=== PATIENT | female | born 1985 | race Caucasian/White ===

== ENCOUNTER 2018-11-22 21:26 | Emergency (ER) | payer MEDICAID ==
[~2018-11-22] VITALS: Ht 162.6 cm; Wt 69.0 kg
[~2018-11-22 21:26] MED LIST: TRAM50TA2 PO
[2018-11-22 22:49] LABS: BASOPHILS # (AUTO) 0.1 X10'3 (0-0.2); BASOPHILS % (AUTO) 0.6 % (0-1); EOSINOPHILS # (AUTO) 0.8 X10'3 (0-0.9); HEMATOCRIT 39.9 % (35.0-45.0); HEMOGLOBIN 12.9 g/dl (12.0-16.0); LYMPHOCYTES # (AUTO) 2.6 X10'3 (1.1-4.8); LYMPHOCYTES % (AUTO) 31.9 % (21-51); MEAN CORPUSCULAR HEMOGLOBIN 25.9 PG (27.0-31.0); MEAN CORPUSCULAR HGB CONC 32.3 % (33.0-36.5); MEAN PLATELET VOLUME 8.5 FL (7.4-10.4); MONOCYTES # (AUTO) 0.7 X10'3 (0-0.9); MONOCYTES % (AUTO) 8.9 % (2-12); NEUTROPHILS % (AUTO) 48.6 % (42-75); PLATELET COUNT 348 X10'3 (140-440); RED BLOOD COUNT 4.99 X10'6 (4.20-5.60); RED CELL DISTRIBUTION WIDTH 17.4 % (11.5-14.5); WHITE BLOOD COUNT 8.2 X10'3 (4.5-11.0)
[2018-11-22 22:55] LABS: ALANINE AMINOTRANSFERASE 23 U/L (12-78); ALBUMIN 3.6 G/DL (3.4-5.0); ALBUMIN/GLOBULIN RATIO 0.9 (1.1-1.5); ALKALINE PHOSPHATASE 89 IU/L (46-116); ANION GAP 8 (8-16); ASPARTATE AMINO TRANSFERASE 18 U/L (10-37); BILIRUBIN,TOTAL 0.4 MG/DL (0.1-1.0); BLOOD UREA NITROGEN 4 MG/DL (7-18); BUN/CREATININE RATIO 4.3 (6.6-38.0); CALCIUM 8.9 MG/DL (8.5-10.1); CHLORIDE 101 MMOL/L (99-107); CREATININE 0.92 MG/DL (0.40-0.90); GLUCOSE 84 MG/DL (70-104); POTASSIUM 3.6 MMOL/L (3.5-5.1); SODIUM 139 MMOL/L (135-145); TOTAL CARBON DIOXIDE 30.3 MMOL/L (24-32); TOTAL PROTEIN 7.6 G/DL (6.4-8.2); eGFR 70 ML/MIN
[2018-11-22 23:03] LABS: ETHANOL < 0.010 GM/DL (0.0-0.010)
[2018-11-23] MEDS ORDERED: LORazepam 1 MG tablet PO PRN (01:50)
[2018-11-23] MEDS ORDERED: sertraline 50mg tablet PO ONE (01:50)
[2018-11-23 03:20] LABS: URINE HCG NEGATIVE (NEG)
[2018-11-23 03:32] LABS: URINE AMPHETAMINE SCREEN NEGATIVE (Neg); URINE BARBITUATE SCREEN NEGATIVE (Neg); URINE BENZODIAZEPINES SCREEN NEGATIVE (Neg); URINE CANNABINOID SCREEN POSITIVE (Neg); URINE COCAINE SCREEN NEGATIVE (Neg); URINE METHADONE SCREEN NEGATIVE (Neg); URINE OPIATE SCREEN NEGATIVE (Neg); URINE PHENCYCLIDINE SCREEN NEGATIVE (Neg)
[2018-11-23 04:04] LABS: CLARITY,URINE CLEAR (Clear); COLOR,URINE YELLOW (Yellow); GLUCOSE, URINE NEGATIVE (Neg); KETONES,URINE NEGATIVE (Neg); LEUKOCYTE ESTERASE ,URINE NEGATIVE (Neg); NITRITES, URINE NEGATIVE (Neg); OCCULT BLOOD,URINE NEGATIVE (Neg); PROTEIN,URINE NEGATIVE (Neg); UROBILINOGEN,URINE 0.2 E.U/dL (0.2-1.0)
[2018-11-23 04:05] LABS: UA COLLECTION TYPE CLN CATCH MIDSTREAM
[2018-11-23] MEDS ORDERED: ALBU18HF2 INH (14:39)
[2018-11-23] MEDS ORDERED: MONT10TA24 PO (14:39)
[2018-11-23] MEDS ORDERED: SERT100T PO (14:39)
[2018-11-23] MEDS ORDERED: FLUT1DIS4 INH (14:39)
[2018-11-23] MEDS ORDERED: LEVO25TA2 PO (14:39)
[2018-11-23] MEDS ORDERED: TRAM50TA2 PO (14:44)
[2018-11-23] MEDS: LORazepam 1 MG tablet PO PRN (14:51)
[2018-11-23] MEDS ORDERED: albuterol 2.5 MG/3 ML nebule NEB PRN (15:05)
[2018-11-23] MEDS ORDERED: LORazepam 1 MG tablet PO ONE (18:45)
[2018-11-23] MEDS: albuterol 2.5 MG/3 ML nebule NEB SCH (19:18)
[2018-11-23] MEDS: BUDESONIDE 0.25 MG/2 ML AMPUL.NEB IH SCH (19:18)
[2018-11-23] MEDS ORDERED: non-formulary drug (Fluticasone/Salmeterol (Advair 250-50 Diskus) 1 PUFFS) INH SCH (20:00)
[2018-11-23] MEDS: sertraline 50mg tablet PO SCH (20:20)
[2018-11-23] MEDS: traMADol 50MG tablet PO SCH (20:20)
[2018-11-24] MEDS: LORazepam 1 MG tablet PO PRN (00:16)
[2018-11-24] MEDS ORDERED: LORazepam 1 MG tablet PO ONE (01:50)
[2018-11-24] MEDS ORDERED: LORazepam 1 MG tablet PO PRN (01:50)
[2018-11-24 05:43] VITALS: BP 141/103
[2018-11-24] MEDS: albuterol 2.5 MG/3 ML nebule NEB SCH (07:00)
[2018-11-24] MEDS: traMADol 50MG tablet PO SCH (07:04)
[2018-11-24] MEDS: sertraline 50mg tablet PO SCH (07:04)
[2018-11-24] MEDS: BUDESONIDE 0.25 MG/2 ML AMPUL.NEB IH SCH (08:00)
[2018-11-24] MEDS ORDERED: levoTHYROXINE 25mcg tablet PO SCH (08:00)
[2018-11-24] MEDS ORDERED: montelukast 10mg tablet PO SCH (08:00)
== END 2018-11-24 08:31 ==
LOC: ER 21:27
DX: F32.9 Major depressive disorder, single episode, unspecified (principal); R45.851 Suicidal ideations; F12.10 Cannabis abuse, uncomplicated; E07.9 Disorder of thyroid, unspecified; Z88.1 Allergy status to other antibiotic agents; Z86.19 Personal history of other infectious and parasitic diseases
CPT/HCPCS: 36415; 80053; 80305; 80320; 81003; 81025; 84443; 85025; 99285

== ENCOUNTER 2018-12-01 21:47 | Emergency (ER) | payer MEDICAID ==
[~2018-12-01] VITALS: Ht 162.6 cm; Wt 69.7 kg
[~2018-12-01 21:47] MED LIST changes: +ALBU18HF2 INH; +FLUT1DIS4 INH; +LEVO25TA2 PO; +MONT10TA24 PO; +SERT100T PO
--- NOTE | 2018-12-01 22:28 | NUR ---
TELEPSYCH CONSULT INITIATED: CALLED SOC
[2018-12-01] MEDS ORDERED: TETanus/Pertussis (Acell)/Diphther VAC/PF (Tdap-Adult) 0.5ml syringe IM ONE (22:50)
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
--- NOTE | 2018-12-01 23:50 | NUR ---
REPORT TO TRACY CAMPBELL AND PATIENT MOVED TO ROOM 12, [facility] IN ROOM
--- NOTE | 2018-12-02 | NUR ---
Pt moved from RAP room 17 to main ER room 12. Awaiting Tele Psych
--- NOTE | 2018-12-02 00:06 | NUR ---
tele psych md calling for report. He will call Pt now. Pt was noted to be calm and in her room and lying on the gurney with hob at 45 degrees and looking at her phone.
--- NOTE | 2018-12-02 00:12 | NUR ---
Tele Psych Consult in progress now.
--- NOTE | 2018-12-02 00:30 | NUR ---
Pt given tetnus booster. Pt reports to me that the Tele Psych MD told her he would recommend inpt psych treatment. Pt now dressed in green scrubs. Awaiting Tele Psych fax for further disposition. Pt is hopeful for involuntary hold and treatment.
[2018-12-02 01:23] LABS: URINE HCG NEGATIVE (NEG)
[2018-12-02 01:34] LABS: URINE AMPHETAMINE SCREEN NEGATIVE (Neg); URINE BARBITUATE SCREEN NEGATIVE (Neg); URINE BENZODIAZEPINES SCREEN NEGATIVE (Neg); URINE CANNABINOID SCREEN POSITIVE (Neg); URINE COCAINE SCREEN NEGATIVE (Neg); URINE METHADONE SCREEN NEGATIVE (Neg); URINE OPIATE SCREEN NEGATIVE (Neg); URINE PHENCYCLIDINE SCREEN NEGATIVE (Neg)
--- NOTE | 2018-12-02 01:38 | NUR ---
179 written for dts. Pt is please with this news and reports that she texted her boyfriends parents to let them know she will be staying.
[2018-12-02] MEDS ORDERED: LURA80TA3 PO (01:41)
[2018-12-02 01:57] LABS: ALANINE AMINOTRANSFERASE 20 U/L (12-78); ALBUMIN 3.6 G/DL (3.4-5.0); ANION GAP 10 (8-16); ASPARTATE AMINO TRANSFERASE 12 U/L (10-37); BILIRUBIN,TOTAL 0.4 MG/DL (0.1-1.0); BLOOD UREA NITROGEN 5 MG/DL (7-18); BUN/CREATININE RATIO 4.8 (6.6-38.0); CALCIUM 8.7 MG/DL (8.5-10.1); CHLORIDE 104 MMOL/L (99-107); CREATININE 1.05 MG/DL (0.40-0.90); GLUCOSE 94 MG/DL (70-104); POTASSIUM 3.8 MMOL/L (3.5-5.1); SODIUM 139 MMOL/L (135-145); TOTAL CARBON DIOXIDE 25.2 MMOL/L (24-32); TOTAL PROTEIN 7.1 G/DL (6.4-8.2); eGFR 60 ML/MIN
[2018-12-02 01:58] LABS: ALKALINE PHOSPHATASE 73 IU/L (46-116); ETHANOL < 0.010 GM/DL (0.0-0.010)
[2018-12-02 02:01] LABS: BASOPHILS % (AUTO) 0.4 % (0-1); EOSINOPHILS # (AUTO) 0.2 X10'3 (0-0.9); EOSINOPHILS % (AUTO) 2.5 % (0-6); HEMATOCRIT 36.9 % (35.0-45.0); HEMOGLOBIN 12.1 g/dl (12.0-16.0); LYMPHOCYTES # (AUTO) 1.9 X10'3 (1.1-4.8); LYMPHOCYTES % (AUTO) 22.5 % (21-51); MEAN CORPUSCULAR HEMOGLOBIN 26.3 PG (27.0-31.0); MEAN CORPUSCULAR HGB CONC 32.9 % (33.0-36.5); MEAN CORPUSCULAR VOLUME 79.9 FL (78-98); MEAN PLATELET VOLUME 9.2 FL (7.4-10.4); MONOCYTES # (AUTO) 0.7 X10'3 (0-0.9); MONOCYTES % (AUTO) 8.3 % (2-12); NEUTROPHILS # (AUTO) 5.6 X10'3 (1.8-7.7); NEUTROPHILS % (AUTO) 66.3 % (42-75); PLATELET COUNT 248 X10'3 (140-440); RED BLOOD COUNT 4.61 X10'6 (4.20-5.60); WHITE BLOOD COUNT 8.4 X10'3 (4.5-11.0)
--- NOTE | 2018-12-02 02:05 | NUR ---
CONTACT INFORMATION: ABEBE COLEMAN -[phone] (PT LIVES WITH THEM AND HER BOYFRIEND AND THESE ARE THE BOYFRIENDS PARENTS).
--- NOTE | 2018-12-02 02:08 | NUR ---
PT REPORTS SHE IS ANXIOUS AND WILL HAVE A HARD TIME SLEEPING. SHE REPORTS SHE WS GIVEN MEDS LAST TIME SHE WAS HERE THAT HELPED WITH HER ANXIETY AND SLEEP. DR. WEBBER UPDATED AND WROTE ORDERS FOR MELATONIN.
[2018-12-02] MEDS: Melatonin 3mg tablet PO SCH ×2 (02:10→20:43)
--- NOTE | 2018-12-02 02:15 | NUR ---
I brought melatonin to pt and she stated she takes it at home and still has a hard time sleeping and she sat up and started to cry. I said she did not tell me this when asked about her home meds. "well it's not a drug". I told her if it is a meds that she takes regularly, it should have been reported. " i am not drug seeking...i heard the doctor mocking me in there". I reiterated to her exactly what i remembered about the conversation i had with dr. leo and that we were not mocking her and the MD had stated "I like melatonin" for a sleep aid and that he was serious in this statement. She eventually said she did not want to take it. I asked her what she wanted me to relay to the MD as I did not want to misrepresent her. She wanted me to let him know she wants to sleep and she is anxious. I updated Dr. leo all of the above. He ordered restoril 15 mg. Pt agreeable to taking this med. Given another warm blanket and lights dimmed. Pt thanking me for the care.
[2018-12-02] MEDS ORDERED: temazepam 15mg capsule PO ONE (02:20)
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
--- NOTE | 2018-12-02 04:04 | NUR ---
pt moved from main er bed 12 to overflow bed 26. Pt had written on the wall next to her gurney with a dry erase marker "Dr. Mabry makes fun of mental health patients: He needs a new job, Burned out!" and on her Pt white board "I love listening to the Drs. Nurses making fun of Pt's. So respectful Dr. Mabry Such a great mandy". Pt reporting hearing nurses and MD making fun of "all the [phone] patients".
[2018-12-02] MEDS ORDERED: ondansetron 4mg rapidly disintigrating tab PO ONE ×3 (04:10→20:10)
--- NOTE | 2018-12-02 04:28 | NUR ---
pt given zofran 8 mg odt. Pt reporting severe anxiety and that "my mind is racing...i can't stop thinking about what is going to happen today...about my baby...i need to sleep...why can't they given me what they gave me last time i was here...it worked". I told her I would relay this to the MD.
[2018-12-02] MEDS ORDERED: LORazepam 1 MG tablet PO ONE (04:35)
--- NOTE | 2018-12-02 04:39 | NUR ---
dr. leo updated on last note and ordering ativan tablet. Pt is thankful for this.
--- NOTE | 2018-12-02 05:17 | NUR ---
HOB flattened with assist. Pt now lying on the bed on her back with blankets covering to her chest. RR 14 and unlabored.
--- NOTE | 2018-12-02 06:19 | NUR ---
dr lowe addressing med rec and giving verbal for ativan 1 mg q4hr prn anxiety.
[2018-12-02] MEDS ORDERED: LORazepam 1 MG tablet PO PRN (06:20)
--- NOTE | 2018-12-02 06:37 | NUR ---
Received SBAR report from NOC shift, assumed care of patient.
[2018-12-02] MEDS: calcium carbonate 500mg chew tablet PO SCH ×3 (08:30→17:30)
--- NOTE | 2018-12-02 08:30 | NUR ---
Patient requested tums for heartburn. Order retained. Patient is sleeping currently and seems to be doing ok at this time. Patient will not be woken up but will be offered medication when she awakens.
--- NOTE | 2018-12-02 12:00 | NUR ---
Patient awake, offered tums, patient refuses and states that she doesn't need it now. Patient wants to know if she is going to be picked up any time soon. Informed patient that she is still being evaluated at this time.
--- NOTE | 2018-12-02 13:03 | NUR ---
[facility] in to see patient at this time
--- NOTE | 2018-12-02 13:54 | NUR ---
Patient found out of her bed sitting on bed 25 with curtain open between room 24 and 25 attempting to talk to patient in bed 24. Patient was instructed to close the curtain and to return to her own bed. Patient followed instructions and returned back to her own bed.
--- NOTE | 2018-12-02 14:03 | NUR ---
Patient up to nurses station asking why she only received one pill for her "vitamin A", which is the order for Ativan. She states that she was given two pills the last time she got it last night. I explained to patient that she may have been given a different dosage last night and that her current order is for Ativen 1mg PO. I also explained to her that her next dose of Ativan if needed will be 2 pills of 0.5mg PO of Ativan do to the pharmacy running out of the 1 mg pills. Patient is acting as if she was not given the correct dose and asks "are you sure that was the correct dose you gave me, because it doesn't feel like it." I educated the patient that the dose was PO and will take some time to be effective. Patient is currently in bed sitting up.
--- NOTE | 2018-12-02 15:51 | NUR ---
Patient currently sleeping after taking 1mg Ativan PO.
[2018-12-02 18:14] LABS: CLARITY,URINE SLIGHTLY CLOUDY (Clear); COLOR,URINE YELLOW (Yellow); GLUCOSE, URINE NEGATIVE (Neg); KETONES,URINE NEGATIVE (Neg); LEUKOCYTE ESTERASE ,URINE NEGATIVE (Neg); NITRITES, URINE NEGATIVE (Neg); OCCULT BLOOD,URINE NEGATIVE (Neg); PH,URINE 8.5 (4.8-8.0); PROTEIN,URINE NEGATIVE (Neg); UROBILINOGEN,URINE 0.2 E.U/dL (0.2-1.0)
[2018-12-02] MEDS: LORazepam 0.5 MG tablet PO PRN (18:17)
[2018-12-02 18:29] LABS: UA COLLECTION TYPE CLN CATCH MIDSTREAM
[2018-12-02 18:30] LABS: BACTERIA,URINE 1+ /HPF (Neg); MUCUS STRANDS FEW /LPF (Neg); SQUAMOUS EPITHELIAL CELL,UR MANY /LPF (FEW)
[2018-12-02 18:31] LABS: RBC,URINE 0-2 /HPF (0-2); WBC,URINE 0-4 /HPF (0-4)
--- NOTE | 2018-12-02 19:23 | NUR ---
The patient is awake and resting on her bed. She currently denies feeling suicidal. Denies feeling depressed. She does report that her appetite is very poor.
[2018-12-02] MEDS: acetaminophen 325mg tablet PO ONE ×2 (19:32→19:34)
[2018-12-02] MEDS ORDERED: Melatonin 3mg tablet PO SCH (21:00)
[2018-12-02] MEDS ORDERED: metoclopramide 5 mg/ml inj IM ONE (21:25)
[2018-12-02] MEDS ORDERED: diphenhydrAMINE 50 mg/ml inj IM ONE (21:25)
--- NOTE | 2018-12-02 21:38 | NUR ---
Patient complained of a headache and stated she would like some tylenol for it. Dr. Pham made aware and 650mg of tylenol was ordered. The patient refused to take it stating it would not work unless she took 6 tablets and she was informed her that was too high a dose and we could not give that dose to her. A short time later she made coughing sounds and stated she was nausiated and Dr. Mabry was made aware and zofran ordered. She took the zofran but only a few minutes later she reportedly vomited it back up but interestingly the zydis tablets were dry. The patient has presented as attention seeking and dramatic. She told a male staff member that she had a migraine headache. Dr. Mabry made aware and orders received and given. As she was getting the injections she stated, "If these meds make me sleepy and I stil have a headache I'm going to be mad"
--- NOTE | 2018-12-03 00:46 | NUR ---
The patient appears to be asleep at this time
[2018-12-03] MEDS: LORazepam 0.5 MG tablet PO PRN ×3 (00:52→09:34)
--- NOTE | 2018-12-03 02:59 | NUR ---
Patient has been awake and having an animated conversation with peer. She then was incontinent of a loose bowel movement. Hygiene supplies provided and bed linens changed.
[2018-12-03 05:42] VITALS: BP 129/81
--- NOTE | 2018-12-03 06:00 | NUR ---
The patient is currently resting on her bed. She has had restless sleep for part of the night. When awake she makes frequent requests from the nursing staff.
[2018-12-03] MEDS: calcium carbonate 500mg chew tablet PO SCH (08:19)
--- NOTE | 2018-12-03 09:38 | NUR ---
PT IS SITTING AT BEDSIDE, TALKING WITH ANOTHER NURSE, NO S/S OF DISTRESS, CALM
--- NOTE | 2018-12-03 10:29 | NUR ---
[facility] HERE TO PANTRY CHEF PT AND TRANSPORT HER TO REST PAD IN [place]. PT GIVEN BELONGINGS TO CHANGE INTO STREET CLOTHES.
== END 2018-12-03 10:40 ==
LOC: ER 21:48
DX: S40.812A Abrasion of left upper arm, initial encounter (principal); F32.9 Major depressive disorder, single episode, unspecified; F12.90 Cannabis use, unspecified, uncomplicated; F41.9 Anxiety disorder, unspecified; R00.2 Palpitations; Z91.010 Allergy to peanuts; Z88.1 Allergy status to other antibiotic agents; Z79.899 Other long term (current) drug therapy; X58.XXXA Exposure to other specified factors, initial encounter; Y93.89 Activity, other specified; Y92.89 Other specified places as the place of occurrence of the external cause; Y99.8 Other external cause status
CPT/HCPCS: 36415; 80053; 80305; 80320; 81001; 81025; 84443; 85025; 90471; 90715; 96372; 99285; J1200; J2765